=== PATIENT | male | born 1985 | race Caucasian/White ===

== ENCOUNTER 2024-11-28 06:33 | Emergency (ER) | payer OTHER ==
[~2024-11-28] VITALS: Ht 162.6 cm; Wt 73.0 kg
[2024-11-28 06:37] VITALS: BP 132/90; PULSE 89; RESP 16; TEMP 37.1; O2SAT 98
[2024-11-28] MEDS: ACETAMINOPHEN 325MG TABLET PO ONE (07:09)
[2024-11-28] MEDS ORDERED: TOPUD PO (08:18)
== END 2024-11-28 09:03 | disposition home or self-care (01) ==
LOC: ER 06:33
DX: R10.31 Right lower quadrant pain (principal); M79.641 Pain in right hand; M25.521 Pain in right elbow; M79.631 Pain in right forearm; R07.81 Pleurodynia; Z90.49 Acquired absence of other specified parts of digestive tract; V89.2XXA Person injured in unspecified motor-vehicle accident, traffic, initial encounter; Y93.89 Activity, other specified; Y92.410 Unspecified street and highway as the place of occurrence of the external cause; Y99.8 Other external cause status
CPT/HCPCS: 73090; 74176; 99284